=== PATIENT | female | born 1980 | race Caucasian/White ===

== ENCOUNTER 2022-11-29 10:31 | Observation (INO) ==
--- NOTE | 2022-11-05 09:01 | Communication Note ---
Date of Service: November 05, 2022 - pt states will be undergoing infusion by oncology "to prevent bone loss" and states that her oncologist and surgeon are both are of upcoming infusion and surgery planned 11/29/22, stated to check with anesthesia department if also acceptable. I advised her we advise to check with prescriber and surgeon so if both offices are aware, it is fine from an anesthesia standpoint. She verbalized understanding and agreement, denied additional questions or concerns.
--- NOTE | 2022-11-19 09:32 | Anesthesiology Consultation ---
Date of Service November 19, 2022 Assessment & Plan (1) Encounter for pre-operative examination: Plan - check urine test and CBC with diff STAT am DOS. - COVID screening: Per assessment director on 11/17/2022: Travel screen negative, no known COVID-19 positive contacts or current COVID-19 related symptoms in past 2 weeks. To surgeon's discretion if preop COVID testing is needed. Chart Review Chart Review: Acceptable Risk for Surgery and Patient NOT seen in Pre Admission Testing History Surgery Operation Date: 11/29/22 07:30 Proposed Procedures p Cystoscopy, Robotic Laparoscopic Removal of the Uterus and Both Fallopian tubes, Removal of Both Ovaries - Ruba Golden MD Height/Weight Height: 5 ft 3 in Weight: 87.09 kg Allergies Allergy/AdvReac Type Severity Reaction Status Date / Time cefdinir Allergy Severe Rash Verified 11/17/22 13:04 levofloxacin [From Levaquin] Allergy Intermediate Hives Verified 11/17/22 13:04 Medications Home Medications Medication Instructions Recorded Confirmed Last Taken cholecalciferol (vitamin D3) 125 5,000 units PO QAM 04/06/19 11/17/22 11/11/20 mcg (5,000 unit) capsule multivitamin 1 tab PO QAM 04/06/19 11/17/22 11/11/20 wheat dextrin 3 gram/4 gram oral 1 pkt PO DAILY PRN Constipation 04/06/19 11/17/22 11/11/20 powder packet (Benefiber Sugar Free (dextrin)) ascorbic acid (vitamin C) 500 mg 500 mg PO QAM 10/29/20 11/17/22 11/11/20 tablet (Vitamin C) acetaminophen 500 mg tablet 500 mg PO Q6H PRN pain/headache 11/02/20 11/17/22 11/12/20 (Tylenol Extra Strength) 100 mg diphenhydramine HCl 12.5 mg 12.5 mg PO TID PRN Allergy Symptoms 12/30/20 11/17/22 Unknown chewable tablet (Children's Benadryl Allergy) magnesium oxide 400 mg PO QAM 05/28/21 11/17/22 Unknown prochlorperazine maleate 10 mg 10 mg PO Q6 PRN Nausea 05/28/21 11/17/22 Unknown tablet tramadol 50 mg tablet 50 mg PO Q6 PRN Pain 05/28/21 11/17/22 05/28/21 14:20 docusate sodium 100 mg capsule 100 mg PO QAM 11/04/21 11/17/22 Unknown (Stool Softener) anastrozole 1 mg tablet (Arimidex) 1 mg PO QPM 05/05/22 11/17/22 Unknown goserelin 3.6 mg subcutaneous 3.6 mg subcut Q28D 05/05/22 11/17/22 Unknown implant loratadine 10 mg tablet (Claritin) 10 mg PO QAM 08/20/22 11/17/22 Unknown Tirosint 112 mcg capsule 112 mcg PO .8xweek 90 days #96 caps 11/05/22 11/17/22 Unknown (levothyroxine) calcium carbonate 600 mg-vitamin 1 tab PO QAM 11/05/22 11/17/22 Unknown D3 10 mcg (400 unit) tablet (Calcium with Vitamin D) ibuprofen 200 mg tablet 200 mg PO Q6H PRN Pain 11/17/22 11/17/22 Unknown lorazepam 0.5 mg tablet (Ativan) 0.5 mg PO TID PRN Anxiety 11/17/22 11/17/22 Unknown zoledronic acid 4 mg/5 mL 4 mg IV YEARLY 11/17/22 11/17/22 Unknown intravenous solution Past Medical History Medical History Acquired lymphedema CHEST-S/P MASTECTOMY, LYMPH NODE DISSECTION Cancer RIGHT BREAST- DX'ED 02/2021- S/P CHEMO, BILATERAL MASTECTOMIES WITH RIGHT AXILLARY NODE DISSECTION, S/P XRT Gestational diabetes HX History of chemotherapy 04/29/2021 - 08/19/2021 - Completed 6 Cycles [facility] for Breast Cancer 10/29/2021 - started [facility] (planning for 14 infusions q 3 weeks) followed by [facility] 09/16/2022- TARGETED CHEMO COMPLETED History of COVID-19 DX'D COVID HOME TEST-01/27/22-FEVER, HEADACHE, BODY ACHES, CHILLS, SORE THROAT-RECOVERED AT HOME/HAD REPEAT HOME TEST NEGATIVE 02/03/22 History of palpitations Hypothyroidism Kidney stone HX Migraine without aura HX Occipital neuralgia Past Family History Family History Grandfather (Paternal) , Passed age 91 of natural causes Diabetes Hearing loss Heart disease Cardiac disorder Hypothyroidism Mother Hypothyroidism Father , Passed age 73 of metastatic prostate cancer Prostate cancer, Onset Age: 70 Hypothyroidism Grandmother (Maternal) , Passed age 75 of Alzheimer's Disease Breast cancer, Onset Age: 60 Lumpectomy + Radiation Tx then did well Grandmother (Paternal) , Passed in 80's of natural causes Colon cancer, Onset Age: 50 Surgical Resection and then did well Brother No problems noted. Brother No problems noted. Son Diabetes Son No problems noted. Other No family history of adverse response to anesthesia No family history of bleeding disorder Past Surgical History Surgical History History of bilateral mastectomy (09/21/21) and axillary dissection (24 LN removed) Dr. Isaac History of right breast biopsy (03/11/21) Nausea and vomiting after administration of anesthetic agent Port-A-Cath in place (04/2021) Left A-port-IN PLACE- UNSURE IF POWER PORT S/P section (2006) [place] teeth extracted Social History Smoking Status: Never smoker Do You Dip or Chew Tobacco: No Hx Alcohol Use: No Hx Substance Use: No substance use type: does not use Lab Results Anesthesia Preop Results Results Anesthesia Widget: WBC 7.46 K/ul (4.8-10.8) 11/18/22 Hgb 14.3 g/dl (12.0-16.0) 11/18/22 Hct 42.3 % (37.0-47.0) 11/18/22 Plt 280 K/uL (130-400) 11/18/22 Na 139 mmol/L (136-145) 11/18/22 K 4.0 mmol/L (3.5-5.1) 11/18/22 Cl 106 mmol/L (98-107) 11/18/22 CO2 29 mmol/L (21-32) 11/18/22 BUN 13 mg/dl (6-23) 11/18/22 Creat 0.61 mg/dl (0.6-1.2) 11/18/22 Glucose Level 93 mg/dl (70-99(Fasting)) 11/18/22 TSH 3.587 uIu/ml (0.300-4.500) 10/20/22 Free T4 1.04 ng/dl (0.61-1.60) 10/20/22 Blood Type O Positive 11/18/22 Testing Electrocardiogram Date: 06/17/22 NSR, rate 82 bpm Non-specific intra-ventricular conduction delay Echocardiogram Date: 02/17/22 EF 65% Normal LV regional wall motion Grade I diastolic dysfunction No LVH Stress Test Date: 09/15/18 Exercise METS 9.3 MPHR 97% Normal exercise echo without evidence of inducible ischemia Normal LV wall motion at rest Other Testing Brain MRI 10/15/22 1. 6 mm periventricular T2 hyperintense enhancing lesion within the posterior right frontal lobe. This is new since previous MRI of November 02, 2020. Given the clinical history, a solitary metastasis is favored. However, this is technically nonspecific and the location is atypical for a metastasis. Additional less likely considerations include etiologies such as demyelinating disease. 2. Otherwise, normal MRI of the brain. No additional lesions.
[~2022-11-29 10:31] MED LIST: CLINDAMYCIN/D5W 900 MG/50 ML BAG IV SCH; GENTAMICIN SULFATE 130 MG in DEXTROSE 5% 100 ML IV SCH; LR 15ML/HR IV SCH; SODIUM CHLORIDE 0.9% 1000ML 1,000 ML IV SCH
[2022-11-29] MEDS ORDERED: ROCURONIUM BROMIDE 10 MG/ML 5 ML VIAL IV ONE (10:39)
[2022-11-29] MEDS ORDERED: PROPOFOL IV EMULSION 10 MG/ML 20 ML VIAL IV ONE (10:39)
[2022-11-29] MEDS ORDERED: fentaNYL citrate PF 100 MCG/2 ML VIAL ONE ×3 (10:39→13:49)
[2022-11-29] MEDS ORDERED: MIDAZOLAM HCL 1 MG/ML 2ML VIAL ONE (10:39)
[2022-11-29] MEDS ORDERED: METHYLENE BLUE 0.5% 10 ML VIAL ONE ×2 (11:02→13:39)
[2022-11-29 11:26] LABS: Basophils # (auto) 0.03 K/uL (0-0.2); Basophils % (auto) 0.4 %; Eosinophils # (auto) 0.21 K/uL (0-0.50); Eosinophils % (auto) 2.8 %; Hematocrit (blood only) 40.3 % (37.0-47.0); Immature Granulocytes # (auto) 0.02 K/uL (0.01-0.20); Immature Granulocytes % (auto) 0.3 %; Lymphocytes # (auto) 2.97 K/uL (1.2-3.4); Lymphocytes % (auto) 39.3 %; Mean Corpuscular Hemoglobin 30.1 pg (25.0-34.0); Mean Corpuscular Hgb Conc 34.7 g/dL (32.0-36.0); Mean Corpuscular Volume 86.7 fL (80.0-100.0); Monocytes # (auto) 0.67 K/uL (0.11-0.59); Monocytes % (auto) 8.9 %; Neutrophils # (auto) 3.66 K/uL (1.40-6.50); Neutrophils % (auto) 48.3 %; Platelet Count 240 K/uL (130-400); RDW Coefficient of Variation 14.2 % (11.5-14.5); RDW Standard Deviation 44.9 fL (36.4-46.3); Red Blood Count 4.65 M/uL (4.20-5.40); White Blood Count 7.56 K/ul (4.8-10.8)
--- NOTE | 2022-11-29 11:48 | History & Physical Bridge Note ---
Date of Service November 29, 2022 History & Physical Bridge Note I have examined the patient, reviewed the History & Physical and in the interval since the performance of the History & Physical I have noted the following changes of clinical significance: no changes noted
[2022-11-29] MEDS ORDERED: ATROPINE SULFATE 0.1 MG/ML 10ML SYR IV PRN (12:04)
[2022-11-29] MEDS ORDERED: ePHEDrine sulfate 50 MG/ML AMP IV PRN (12:04)
[2022-11-29] MEDS ORDERED: DROPERIDOL 5 MG/2 ML VIAL IV PRN (12:04)
[2022-11-29] MEDS ORDERED: HYDROmorphone INJ 2 MG/ML SYR/VIAL IV PRN (12:04)
[2022-11-29] MEDS ORDERED: ONDANSETRON INJ 2 MG/ML 2 ML VIAL IV PRN ×2 (12:04→16:17)
[2022-11-29] MEDS ORDERED: fentaNYL citrate PF 100 MCG/2 ML VIAL IV PRN (12:04)
[2022-11-29] MEDS ORDERED: ONDANSETRON INJ 2 MG/ML 2 ML VIAL ONE ×2 (12:46→14:37)
[2022-11-29] MEDS ORDERED: DEXAMETHASONE SOD INJ 4 MG/ML VIAL ONE (12:46)
[2022-11-29] MEDS ORDERED: KETOROLAC 30 MG/ML VIAL ONE (13:08)
[2022-11-29] MEDS ORDERED: GLYCOPYRROLATE 0.2 MG/ML VIAL ONE (13:08)
[2022-11-29] MEDS ORDERED: NEOSTIGMINE METHYLSULFATE 1 MG/ML 10ML VIAL ONE (13:08)
[2022-11-29] MEDS ORDERED: ePHEDrine sulfate 50 MG/ML AMP ONE (13:09)
[2022-11-29] MEDS ORDERED: KETAMINE 50 MG/5 ML SYRINGE ONE (13:15)
[2022-11-29] MEDS ORDERED: DIATRIZOATE MEGLUMINE 30% 100ML VIAL INSTIL PRN (14:36)
[2022-11-29] MEDS ORDERED: SUGAMMADEX SODIUM 200 MG/2 ML VIAL IV ONE (14:46)
--- NOTE | 2022-11-29 14:49 | Operative Report ---
PG Post Operative Report Pre & Post Diagnosis Operation Date: 11/29/22 12:10 Pre-Op Diagnosis: Breast Cancer Risk Reduction Abnormal uterine bleeding Post-Op Diagnosis: Breast Cancer Risk Reduction Abnormal uterine bleeding Limited right ureteral efflux, s/p stent placement I identified the patient and participated in the time-out.: Yes Procedure Operation Date: 11/29/22 12:10 Actual Procedures Robotic Assisted Laparoscopic Hysterectomy, Bilateral Salpingo-oophorectomy, Cystoscopy - Ruba Golden MD FACOG Right Ureteral Stent Insertion, Cystoscopy - Crescencio Menchaca DO Surgeon Ruba Golden MD Software Solutions Architect None Estimated Blood Loss 35 Findings Consistent with Post-Op Diagnosis Specimens Uterus, Cervix, Bilateral fallopian tubes and ovaries Anesthesia Type General Complications none During cystoscopy, poor efflux from R ureteral orifice noted. Stent placed with no resistance to stent, laparoscopic confirmation of ureteral course free of operative sites, and trace bloody efflux after stent placement. No ureteral injury suspected. Ureteral edema or spasm are likely present. Disposition Accompanied Patient To Recovery: Yes Description of Procedure The patient was placed on the table in lithotomy position and prepped/draped in standard sterile fashion. A hard time out was taken prior to proceeding. The yee and V-Care uterine manipulator were placed without complication. Optical entry was made at the umbilicus with a robotic trocar and 5mm camera, which was accomplished without complications. The abdomen was insufflated, and the patient was placed in Trendelenburg. Under direct visualization, right and left lower quadrant ports were placed. The camera was moved to the LLQ port to view the umbilical entry and ensure it was clear and free of injury. Survey of the pelvic organs revealed normal-appearing uterus, normal tubes, and normal ovaries. Upper abdomen also normal. The robot was docked and surgery then proceeded. Ureters were traced along thei r course bilaterally and seen to be anatomically normal and peristalsing. A window was created behind the IP ligaments which were then cauterized with bipolar and sharply divided. The round ligaments were ligated and divided. The broad ligaments were dissected to create a bladder flap and skeletonize the uterine arteries. The bladder was mobilized downwards, the uterine arteries were ligated and divided bilaterally, and the colpotomy was completed circumferentially. The uterus, cervix, ovaries and tubes were delivered en bloc via the vagina. A V-Ilana suture was introduced via the vagina and used to close the cuff in a running nonlocked manner. The needle was then retrieved via robotic trocar. Suction/irrigation was used to wash and observe all working sites; this final survey of the surgical sites revealed good hemostasis. Cystoscopy was performed and showed an intact bladder dome free of injury and a good strong jet of urine from the left ureteral orifice. Initially no jet was seen from the right UO, despite excellent peristalsis of that ureter both during the laparoscopic case and during cystoscopy. In order to aid visualization, methylene blue was given IV and after a few minutes, the urine from the left UO was seen to turn blue. Although the R UO continued to peristalse and perhaps open a tiny bit, no obvious jet of urine - either stained or plain yellow - was convincingly seen. Urology was asked to come to the OR to evaluate. While they were en route, draining the bladder to reduce pressure was tried, and laparoscopic view was undertaken to see if the ureter was filling and dilating; it was not. A tiny bit of urine efflux was suspected several times, but no jet was evident, and no blue was seen from the R UO. See Dr. Jacobs' note for full details. In short, he passed a stent easily through the R ureter and this met no resistance. A trace amount of bloody efflux occurred, but no jet of blue stained urine was seen even with the stent in place all the way to the kidney. Laparoscopic view of this ureter while the stent was wiggled showed the course of the ureter was typical and free of the sewn cuff, without obvious injury. Traction on the cuff with a laparoscopic grasper near the R angle did not result in efflux of blue urine from the R UO. Dr. Menchaca recommended placing a J-J stent to leave in situ for 1 week while any edema or spasm in the ureter resolves, after which he expects baseline function to resume. He did not suspect ureteral injury at the time of surgery. C-arm fluoroscopy was used to confirm intraop findings and correct stent placement. The bladder was then drained. The abdomen was deflated and all instruments were removed. The port sites were closed with 4-0 monocryl and a dermabond dressing. A final vaginal exam ensured no materials remained and the cuff was intact. The patient was transferred to the recovery room in good condition. The above events will be discussed in full with the patient and/or her support person before she leaves the hospital today. I attest to the content of the Intraoperative Record and any orders documented therein. Any exceptions are noted below. CORPORATE COMPLIANCE OFFICER Major Procedure Codes Hysterectomy 21007 TLH <250g +S/O
--- NOTE | 2022-11-29 15:04 | Fluoroscopy Report ---
FL [facility] CLINICAL HISTORY: RT STENT INSERTION TECHNIQUE: 5 views were obtained with the C-arm in the OR with the above procedure. Total fluoroscopy time was 6.8 seconds. Radiation dose was 1.70 mGy. Comparison: None available at the time of this dictation. FINDINGS/IMPRESSION: Intraoperative images were obtained of right nephroureteral stent placement. Please correlate with intraoperative fluoroscopy and operative report. ACT 112: Negative or not required by law. Electronically signed by: Npaoleon Ponce M.D. 11/29/2022 3:03 PM
--- NOTE | 2022-11-29 15:26 | Operative Report ---
PG Post Operative Report Pre & Post Diagnosis Operation Date: 11/29/22 12:10 Pre-Op Diagnosis: At Risk for Cancer BRCA Negative, Breast Cancer Post-Op Diagnosis: At Risk for Cancer BRCA Negative, Breast Cancer I identified the patient and participated in the time-out.: Yes Procedure Operation Date: 11/29/22 12:10 Actual Procedures Cystoscopy with Right Ureteral Stent Insertion(Right) - Crescencio Menchaca DO Surgeon Crescencio Menchaca, II, DO Metal Worker None Estimated Blood Loss 35 Findings Consistent with Post-Op Diagnosis Stent placed in good position. Normal urine efflux from left ureter. Right with some peristalsis but no efflux of urine. No signs of ureteral injury on placement of 5 fr open ended catheter. Stent placed without issue. Specimens None Drains 6 Fr Multilength Anesthesia Type General Complications none Disposition Accompanied Patient To Recovery: Yes Disposition: Recovery Room Indications Patient with obstruction. Risks and benefits discussed at length. Description of Procedure Patient was consented for Gynecologic surgery with robotic assistance. Urology was intraoperatively consulted due to concerns related to right ureter. Patient was in dorsal lithotomy position and had been prepped and draped in the standard fashion. A 30 and 70 degree Cystoscope was used on the bladder and the entire bladder was examined. The UO's were identified. The left UO had good drainage of blue tinged urine. The right ureter had some motion but no drainage. The right UO was cannulized with a catheter and was easily advance to the right kidney. No injury was noted. The primary team had placed the laparoscope and assessed the ureter with the catheter in place. Due to the minimal output and possible pressure externally due to the closure and edema of surrounding tissues, it was decided to leave a stent. A wire was then placed. With the wire in place, a 6 Fr Double J stent was placed. It was confirmed with fluoroscopy. With the stent in place, the bladder was emptied. The scope was removed. The patient was cleaned and care transferred back to the primary team. janelle Quinonez was present and participated in all aspects of this portion of the procedure. Please see Dr. Golden's note for full information on the remainder and the previous portions of the case. Followup in approx 1 week for stent removal. I attest to the content of the Intraoperative Record and any orders documented therein. Any exceptions are noted below.
--- NOTE | 2022-11-29 16:08 | Anesthesiology Progress Note ---
Date of Service November 29, 2022 Anesthesia Post Procedure Vital Signs Vital Signs: Temp Pulse Resp BP Pulse Ox O2 Del Method O2 Flow Rate 11/29/22 16:00 114 H 17 126/82 95 Nasal Cannula 2 11/29/22 15:50 113 H 16 129/75 95 Nasal Cannula 2 11/29/22 15:40 119 H 20 111/79 97 Nasal Cannula 2 11/29/22 15:30 105 H 16 125/70 96 Nasal Cannula 2 11/29/22 15:20 119 H 22 130/79 90 Room Air 11/29/22 15:10 119 H 21 146/79 H 97 Room Air 11/29/22 15:00 97.0 F L 115 H 19 130/71 97 Oxymask 5 11/29/22 10:54 98.6 F 112 H 20 153/95 H 97 Room Air Pain Intensity Head: Pain Intensity: 2 Abdomen: Pain Intensity: 4 Transfer of Care Handoff Completed per policy Notes Mental Status: alert / awake / arousable and participated in evaluation Patient Amnestic to Procedure: Yes Nausea / Vomiting: improving with treatment Pain: adequately controlled and improving with treatment Airway Patency, RR, SpO2: stable & adequate BP & HR: stable & adequate Hydration State: stable & adequate Anesthetic Complications: no major complications apparent and Pt Satisfied with anesthetic care
[2022-11-29] MEDS ORDERED: HYDROCODONE/ACETAMOPHEN 5/325MG TAB PO PRN ×3 (16:17→19:14)
[2022-11-29] MEDS ORDERED: METOPROLOL TARTRATE 1 MG/ML VIAL IV STA (17:00)
[2022-11-29] MEDS ORDERED: PROCHLORPERAZINE 10 MG in SYRINGE 8 ML IV PRN (19:09)
[2022-11-29] MEDS ORDERED: ACETAMINOPHEN 325 MG TAB PO PRN (19:14)
[2022-11-29] MEDS ORDERED: LACTATED RINGER'S 1,000 ML IV SCH (19:15)
[2022-11-30] MEDS: IBUPROFEN 600 MG TAB PO PRN ×2 (02:49→07:48)
[2022-11-30 07:34] VITALS: BP 123/80; PULSE 117; TEMP 98.4; O2SAT 96
--- NOTE | 2022-11-30 08:25 | Communication Note ---
Date of Service: November 30, 2022 I met with Tia yesterday upon her arrival to Phase 2 and discussed the placement of stent with her, having previously discussed this with her by phone from the PACU at completion of the case. I spoke with Tia yesterday by phone, as Phase 2 was closing, and she was not yet feeling ready for D/C home. It is noted that she received ketamine during surgery and had a notably difficult wake-up process with emotional expression being a significant issue in her Phase 1 recovery, sobbing / shouting etc. That did improve, and primary among her issues at the time of her Phase 2 recovery were nausea and lightheadedness. In the absence of orthostasis or changes from her baseline tachycardia, and without concerns for excess bleeding during surg marta, this was felt to be due to side effects of anesthetic meds which she feels she is very sensitive to. She was offered admission for overnight observation to allow meds to wear off and ensure she would begin feeling better. I met with Tia in room 406 this morning, finding her significantly improved. Review of her chart was undertaken including specifically review of her overnight vitals, nursing notes, and documented events. At about 2-3am, per the patient, she began to feel able to ambulate and eat without difficulty, and this morning she is confident in her ability to complete her recovery at home. This is consistent with the nursing notes in the chart also. Other than her known baseline/asymptomatic tachycardia, there are no concerns in her vitals today. She is aware not to use Tramadol for at least two weeks after administration of methylene blue, and instead was provided with hydrocodone / acetaminophen, though she says she will likely use only tylenol and motrin as she states that issues with having severe side effects from narcotics are known and consistent for her; she just wants to know she has something stronger available if needed. She was counseled once more on the stent and its need for removal next week, use of AZO as needed for discomfort and/or prior to removal for comfort during that process, and this is all added to her written instructions as well. She will f/u in office in 2 weeks and has emergency contact info for any concerns in the meantime.
--- NOTE | 2022-12-02 11:46 | Discharge Summary ---
Date of Service December 02, 2022 Discharge Data Procedures Performed Operation Date: 11/29/22 12:10 Actual Procedures p Robotic Assisted Laparoscopic Hysterectomy Bilateral Salpingo-oophorectomy, Cystoscopy(Not Applicable) - Ruba Golden MD s Cystoscopy, Right Ureteral Stent Insertion(Right) - Crescencio Menchaca DO Hospital Course (1) Malignant neoplasm of upper-outer quadrant of right breast in female, estrogen receptor positive: Plan Patient with multiple primary HR+ breast cancers. Planned risk-reducing robotic TLH/BSO completed, with cystoscopy, during which no urine jet was observed from R ureteral orifice. Stent placed in R ureter from bladder to kidney without resistance or evidence of ureteral injury, and still without evidence of efflux. J-J stent left in-situ to protect ureteral patency for approx 1 week postop, until such time as any edema or spasm may resolve. It is unknown if baseline R renal function is poor or if flow will resume postop. Patient is planned for 1 wk urology f/u, 2 wk and 6 wk CAR HOP f/u, and has post surgical pain medication and urinary pain management plan as well. Coding Level of Care Code None Diagnoses Malignant neoplasm of upper-outer quadrant of right breast in female, estrogen receptor positive C50.411; Z17.0
== END 2022-11-30 09:28 | disposition home or self-care (01) ==
LOC: ASU 10:31 → 4E2 10:31
DX: Z88.1 Allergy status to other antibiotic agents; Z88.8 Allergy status to other drugs, medicaments and biological substances; Z79.899 Other long term (current) drug therapy; N93.9 Abnormal uterine and vaginal bleeding, unspecified